=== PATIENT | female | born 2000 | race Caucasian/White ===

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

== ENCOUNTER 2023-02-11 15:10 | Emergency (ER) | payer MEDICAID ==
[~2023-02-11] VITALS: Ht 165.1 cm; Wt 86.2 kg
[2023-02-11 15:38] VITALS: BP 155/106; PULSE 128; RESP 16; TEMP 98.7; O2SAT 96
[2023-02-11] MEDS ORDERED: DEXAMETHASONE 10 MG/ML VIAL PO ONE (17:30)
== END 2023-02-11 18:48 | disposition home or self-care (01) ==
LOC: ER 15:10
DX: J35.1 Hypertrophy of tonsils (principal)
CPT/HCPCS: 99283; 87430; 87070; J1100

== ENCOUNTER 2023-02-14 15:25 | Emergency (ER) | payer MEDICAID ==
[~2023-02-14] VITALS: Ht 165.1 cm; Wt 86.0 kg
[2023-02-14 15:28] VITALS: TEMP 98.6; O2SAT 99
[2023-02-14 20:05] LABS: BASOPHILS % 0.4 % (0.0-2.0); EOSINOPHILS % 0.2 % (0.0-5.0); HEMATOCRIT. 38.3 % (36.0-48.0); HEMOGLOBIN. 12.9 g/dL (12.0-16.0); LYMPHOCYTES % 20.5 % (20.0-50.0); MEAN CORPUSCULAR HEMOGLOBIN 28.5 pg (28.0-32.0); MEAN CORPUSCULAR HGB CONC 33.6 g/dL (31.0-37.0); MEAN CORPUSCULAR VOLUME 84.8 fL (81.0-99.0); MEAN PLATELET VOLUME 8.5 fl (7.4-10.4); MONOCYTES % 6.6 % (2.0-8.0); NEUTROPHILS % 72.3 % (40.0-76.0); PLATELET 428 x1000/uL (130-400); RED BLOOD CELL COUNT 4.51 mill/uL (4.2-5.4); RED CELL DISTRIBUTION WIDTH 13.2 % (11.6-14.6)
[2023-02-14 20:08] LABS: ALANINE AMINOTRANSFERASE 12 IU/L (10-49); ALBUMIN 4.9 g/dL (3.2-4.8); ASPARTATE AMINOTRANSFERASE 13 IU/L (<34); BILIRUBIN TOTAL 0.4 mg/dL (0.1-1.0); CALCIUM 9.9 mg/dL (8.7-10.4); CARBON DIOXIDE 27 mEq/L (21-32); CHLORIDE 108 mEq/L (98-107); CREATININE 0.7 mg/dL (0.6-1.0); GLUCOSE 92 mg/dL (70-105); POTASSIUM 3.6 mEq/L (3.5-5.1); PROTEIN TOTAL 8.3 g/dL (6.0-8.3); SODIUM 142 mEq/L (136-145); UREA NITROGEN BLOOD 10 mg/dL (9-23)
[2023-02-14 20:38] LABS: HCG SCREEN NEGATIVE
[2023-02-14 20:39] LABS: MONOTEST NEGATIVE (NEGATIVE)
[2023-02-14] MEDS ORDERED: IOHEXOL-300 100 ML BOTTLE ONE (21:38)
[2023-02-14] MEDS ORDERED: KETOROLAC 30MG/ML VIAL IV ONE (22:45)
[2023-02-14] MEDS ORDERED: PENICILLIN G BENZATHINE 1,200,000 UNITS/2ML SYR IM NR (22:45)
[2023-02-14] MEDS ORDERED: PEN G BENZ/PEN G PROCAINE CR 1.2 MMU/2 ML IM ONE (22:45)
[2023-02-15] MEDS: KETOROLAC 30MG/ML VIAL IV NR ×2 (00:46→00:48)
[2023-02-15 00:48] VITALS: BP 135/78; PULSE 88; RESP 18
== END 2023-02-15 00:53 | disposition home or self-care (01) ==
LOC: ER 15:25
DX: R51.9 Headache, unspecified (principal); M54.2 Cervicalgia
CPT/HCPCS: 99285; 70450; 80053; 84703; 85025; 86308; 36415; 70491; 96374; 96372; J0561; Q9967; J1885; J0558

== ENCOUNTER 2023-12-18 19:05 | Emergency (ER) | payer MEDICAID ==
[~2023-12-18] VITALS: Ht 165.1 cm; Wt 86.0 kg
[2023-12-18 19:12] VITALS: O2SAT 95
[2023-12-18 19:27] VITALS: BP 135/55; PULSE 80; RESP 16; TEMP 98.4; O2SAT 99
[2023-12-18 20:44] LABS: BASOPHILS % 0.5 % (0.0-2.0); EOSINOPHILS % 1.5 % (0.0-5.0); HEMATOCRIT. 37.9 % (36.0-48.0); HEMOGLOBIN. 12.5 g/dL (12.0-16.0); LYMPHOCYTES % 15.3 % (20.0-50.0); MEAN CORPUSCULAR HEMOGLOBIN 27.8 pg (28.0-32.0); MEAN CORPUSCULAR HGB CONC 32.9 g/dL (31.0-37.0); MEAN CORPUSCULAR VOLUME 84.4 fL (81.0-99.0); MEAN PLATELET VOLUME 8.8 fl (7.4-10.4); MONOCYTES % 6.4 % (2.0-8.0); NEUTROPHILS % 76.3 % (40.0-76.0); PLATELET 364 x1000/uL (130-400); RED BLOOD CELL COUNT 4.49 mill/uL (4.2-5.4); RED CELL DISTRIBUTION WIDTH 13.8 % (11.6-14.6); WHITE BLOOD COUNT 13.8 x1000/uL (4.5-11.0)
[2023-12-18 20:47] LABS: CHLORIDE 105 mEq/L (98-107); POTASSIUM 3.7 mEq/L (3.5-5.1); SODIUM 138 mEq/L (136-145)
[2023-12-18 20:48] LABS: CALCIUM 9.9 mg/dL (8.7-10.4); CARBON DIOXIDE 24 mEq/L (21-32)
[2023-12-18 20:53] LABS: CREATININE 0.8 mg/dL (0.6-1.0); GLUCOSE 104 mg/dL (70-105); UREA NITROGEN BLOOD 12 mg/dL (9-23)
[2023-12-18 21:01] LABS: TROPONIN I HIGH SENSITIVITY < 4 ng/L (3.0-34)
== END 2023-12-18 20:43 ==
LOC: ER 19:05
DX: S06.0X0A Concussion without loss of consciousness, initial encounter (principal); R55 Syncope and collapse; W18.39XA Other fall on same level, initial encounter; Y93.89 Activity, other specified; Y92.89 Other specified places as the place of occurrence of the external cause; Y99.8 Other external cause status
CPT/HCPCS: 80048; 81025; 82962; 85025; 84484; 36415; 70450; 93005; 99284; Z7610